=== PATIENT | male | born 1980 | race Caucasian/White ===

== ENCOUNTER 2017-04-09 14:19 | Emergency (ER) | payer OTHER ==
[2017-04-09 15:57] LABS: Hematocrit 42 % (42-52); Hemoglobin 14.6 g/dl (14.0-18.0); Mean Corpuscular HGB Conc 35 g/dl (31-36); Mean Corpuscular Hemoglobin 31 pg (27-31); Mean Corpuscular Volume 89 fL (80-94); Mean Platelet Volume 8 um3 (7.4-10.4); Red Blood Count 4.74 10^6/ul (4.0-5.4); Red Cell Distribution Width 13 % (10.5-15); White Blood Count 7.2 10^3/ul (3.5-10.8)
[2017-04-09 16:17] LABS: BUN/Creatinine Ratio 13.8 (8-20); Calcium 9.2 mg/dL (8.6-10.3); EGFR Non-African American 98.7 (>60); Potassium 3.8 mmol/L (3.5-5.0); Total Bilirubin 0.7 mg/dL (0.2-1.0)
--- NOTE | 2017-04-09 16:45 | ED ---
GI/ HPI - HPI Summary HPI Summary: c/o back pain in flank /kidney area for a few days, then today pain in two decayed teeth one on top and one on bottom on the left side are painful and gums are swollen - History of Current Complaint Chief Complaint: EDFlankPain Time Seen by Provider: 04/09/17 16:44 Stated Complaint: KIDNEY PAIN Hx Obtained From: Patient Onset/Duration: Started Days Ago, Atraumatic Timing: Constant Severity: Moderate Current Severity: Moderate Pain Intensity: 9 Location of Pain: Flank Pain Characteristics: Aching Associated Signs and Symptoms: Positive: Negative Aggravating Factor(s): Nothing Alleviating Factor(s): Nothing - Allergy/Home Medications Allergies/Adverse Reactions: Allergies Allergy/AdvReac Type Severity Reaction Status Date / Time Penicillins Allergy Rash And Verified 07/27/14 10:36 Itching PMH/Surg Hx/FS Hx/Imm Hx Previously Healthy: No Endocrine/Hematology History: Denies: Hx Diabetes, Hx Thyroid Disease Cardiovascular History: Denies: Hx Hypertension, Hx Pacemaker/ICD Respiratory History: Denies: Hx Asthma, Hx Chronic Obstructive Pulmonary Disease (COPD) GI History: Denies: Hx Ulcer Musculoskeletal History: Denies: Hx Arthritis, Hx Osteoporosis Sensory History: Denies: Hx Hearing Aid Neurological History: Reports: Hx Headaches Psychiatric History: Reports: Hx Depression Denies: Hx Panic Disorder Infectious Disease History: Yes Infectious Disease History: Denies: Hx Hepatitis, Hx Human Immunodeficiency Virus (HIV), History Other Infectious Disease, Traveled Outside the in Last 30 Days - Family History Known Family History: Positive: None - Social History Occupation: Unemployed Lives: With Family Alcohol Use: Daily Alcohol Amount: shots of vodka daily Substance Use Type: Reports: Marijuana Substance Use Comment - Amount & Last Used: occassionally Smoking Status (MU): Heavy Every Day Tobacco Smoker Type: Cigarettes Amount Used/How Often: 1 ppd Length of Time of Smoking/Using Tobacco: 20 years Have You Smoked in the Last Year: Yes Review of Systems Constitutional: Negative Eyes: Negative Positive: Dental Pain Cardiovascular: Negative Respiratory: Negative Gastrointestinal: Negative Genitourinary: Other Positive: flank pain Musculoskeletal: Negative Skin: Negative Neurological: Negative Psychological: Normal All Other Systems Reviewed And Are Negative: Yes Physical Exam Triage Information Reviewed: Yes Vital Signs On Initial Exam: Initial Vitals Temp Pulse Resp BP Pulse Ox 98.4 F 100 17 164/95 97 04/09/17 14:23 04/09/17 14:23 04/09/17 14:23 04/09/17 14:23 04/09/17 14:23 Vital Signs Reviewed: Yes Appearance: Positive: Well-Appearing, Well-Nourished, Pain Distress - mild Skin: Positive: Warm, Skin Color Reflects Adequate Perfusion Head/Face: Positive: Normal Head/Face Inspection Eyes: Positive: Normal, Conjunctiva Clear ENT: Positive: Normal ENT inspection, Hearing grossly normal, Pharynx normal, Dental tenderness. Negative: Nasal congestion, Nasal drainage, Tonsillar swelling, Tonsillar exudate, Trismus, Muffled/hoarse voice Dental: Positive: Gross Decay/Caries @, Abscess @ Neck: Positive: Supple, Nontender Respiratory/Lung Sounds: Positive: Clear to Auscultation, Breath Sounds Present Cardiovascular: Positive: Normal, Pulses are Symmetrical in both Upper and Lower Extremities Abdomen Description: Positive: Nontender, No Organomegaly, Soft. Negative: CVA Tenderness (R), CVA Tenderness (L) Bowel Sounds: Positive: Present Neurological: Positive: Normal, Sensory/Motor Intact, Alert, Oriented to Person Place, Time Psychiatric: Positive: Normal AVPU Assessment: Alert - [place] Coma Scale Best Eye Response: 4 - Spontaneous Best Motor Response: 6 - Obeys Commands Best Verbal Response: 5 - Oriented Diagnostics - Vital Signs Vital Signs Temp Pulse Resp BP Pulse Ox 04/09/17 14:23 98.4 F 100 17 164/95 97 - Laboratory Lab Results: Lab Results 04/09/17 04/09/17 04/09/17 Range/Units 15:45 15:45 15:45 WBC 7.2 (3.5-10.8) 10^3/ul RBC 4.74 (4.0-5.4) 10^6/ul Hgb 14.6 (14.0-18.0) g/dl Hct 42 (42-52) % MCV 89 (80-94) fL MCH 31 (27-31) pg MCHC 35 (31-36) g/dl RDW 13 (10.5-15) % Plt Count 267 (150-450) 10^3/ul MPV 8 (7.4-10.4) um3 Neut % (Auto) 56.7 (38-83) % Lymph % (Auto) 28.1 (25-47) % [place] % (Auto) 12.7 H (1-9) % Eos % (Auto) 1.4 (0-6) % Baso % (Auto) 1.1 (0-2) % Absolute Neuts (auto) 4.1 (1.5-7.7) 10^3/ul Absolute Lymphs (auto) 2.0 (1.0-4.8) 10^3/ul Absolute Monos (auto) 0.9 H (0-0.8) 10^3/ul Absolute Eos (auto) 0.1 (0-0.6) 10^3/ul Absolute Basos (auto) 0.1 (0-0.2) 10^3/ul Absolute Nucleated RBC 0 10^3/ul Nucleated RBC % 0 Sodium 139 (133-145) mmol/L Potassium 3.8 (3.5-5.0) mmol/L Chloride 109 (101-111) mmol/L Carbon Dioxide 25 (22-32) mmol/L Anion Gap 5 (2-11) mmol/L BUN 12 (6-24) mg/dL Creatinine 0.87 (0.67-1.17) mg/dL Est GFR ( Amer) 127.0 (>60) Est GFR (Non-Af Amer) 98.7 (>60) BUN/Creatinine Ratio 13.8 (8-20) Glucose 103 H (70-100) mg/dL Lactic Acid 0.7 (0.5-2.0) mmol/L Calcium 9.2 (8.6-10.3) mg/dL Total Bilirubin 0.70 (0.2-1.0) mg/dL AST 15 (13-39) U/L ALT 15 (7-52) U/L Alkaline Phosphatase 61 (34-104) U/L Total Protein 7.0 (6.4-8.9) g/dL Albumin 4.0 (3.2-5.2) g/dL Globulin 3.0 (2-4) g/dL Albumin/Globulin Ratio 1.3 (1-3) Result Diagrams: 04/09/17 15:45 04/09/17 15:45 Lab Statement: Any lab studies that have been ordered have been reviewed, and results considered in the medical decision making process. GIGU Course/Dx - Course Assessment/Plan: dental caries with abscess, flank pain, nicotine dependent hypertension - Diagnoses Provider Diagnoses: Dental caries, Flank pain, Nicotine dependence, Hypertension Discharge - Discharge Plan Condition: Stable Disposition: HOME Prescriptions: Clindamycin Cap(NF) [Clindamycin Cap 300 mg Cap(NF)] 300 mg PO Q6H #40 cap Hydrocodone-Acetaminophen [Hydrocodone/Acetaminophen 5-325 mg] 1 tab PO Q6H PRN #10 tab MDD 4 PRN Reason: pain Naproxen [Naproxen 500 mg] 500 mg PO BID #20 tab Patient Education Materials: Dental Abscess (ED), Hypertension (ED), Flank Pain (ED), Toothache (ED) Referrals: [facility] [place] [facility]FERRAL [Outside] - 1 Week Additional Instructions: Follow with dentist next week as planned
[2017-04-09 17:25] LABS: Urine Bilirubin Negative (Negative); Urine Glucose Negative (Negative); Urine Nitrite Negative (Negative)
[2017-04-09 17:51] VITALS: BP 156/93
== END 2017-04-09 17:50 | disposition home or self-care (01) ==
LOC: ED 14:19
DX: M54.9 Dorsalgia, unspecified (principal); K02.9 Dental caries, unspecified; I10 Essential (primary) hypertension; F32.9 Major depressive disorder, single episode, unspecified; Z88.0 Allergy status to penicillin; F12.90 Cannabis use, unspecified, uncomplicated; F17.210 Nicotine dependence, cigarettes, uncomplicated
CPT/HCPCS: 36415; 80053; 81003; 83605; 85025; 99282

== ENCOUNTER → 2018-06-25 10:41 | Emergency (ER) | payer OTHER ==
[2018-06-25 13:49] LABS: ABS Basophils 0 10^3/ul (0-0.2); ABS Eosinophils 0.2 10^3/ul (0-0.6); ABS Lymphocytes 2.6 10^3/ul (1.0-4.8); ABS Monocytes 0.5 10^3/ul (0-0.8); ABS Neutrophils 3.1 10^3/ul (1.5-7.7); ABS Nucleated RBC 0 10^3/ul; Eosinophil % 2.5 %; Hematocrit 40 % (42-52); Hemoglobin 13.6 g/dl (14.0-18.0); Lymphocyte % 40.4 %; Mean Corpuscular HGB Conc 34 g/dl (31-36); Mean Corpuscular Hemoglobin 30 pg (27-31); Mean Corpuscular Volume 88 fL (80-94); Mean Platelet Volume 8.3 fL (7.4-10.4); Nucleated Red Blood Cells % 0.1; Platelet Count 194 10^3/ul (150-450); Red Blood Count 4.53 10^6/ul (4.00-5.40); Red Cell Distribution Width 13 % (10.5-15); White Blood Count 6.5 10^3/ul (3.5-10.8)
[2018-06-25 14:18] LABS: Albumin 3.9 g/dL (3.2-5.2); Albumin/Globulin Ratio 1.7 (1-3); BUN/Creatinine Ratio 9.9 (8-20); C Reactive Protein 1.13 mg/L (<8.01); EGFR Non-African American 93.2 (>60); Globulin 2.3 g/dL (2-4); Potassium 4.1 mmol/L (3.5-5.0); Total Bilirubin 0.6 mg/dL (0.2-1.0); Total Protein 6.2 g/dL (6.4-8.9)
[2018-06-25 15:09] VITALS: BP 0/0
--- NOTE | 2018-06-26 06:49 | ED ---
HPI Chest Pain - HPI Summary HPI Summary: Patient is a 38-year-old male with a 2 day history of chest pain with cough. He denies any known sick contacts. He states he has been in [place] recently and may have picked up something there. He denies any fevers, sweats, chills. Patient endorses heavy smoking history. Denies any abdominal pain. Endorses sore throat over the past few days as well and frequent panic attacks which he states he is unable to breathe following the panic attacks. He denies any sweats or chills. Patient states he is here to get "checked out." - History of Current Complaint Chief Complaint: EDGeneral Time Seen by Provider: 06/25/18 13:06 Hx Obtained From: Patient Onset/Duration: Started Hours Ago Timing: Constant Initial Severity: Moderate Current Severity: Moderate Pain Intensity: 5 Pain Scale Used: 0-10 Numeric Chest Pain Location: Diffuse Chest Pain Radiates: No Character: Cough, Non-Productive Aggravating Factor(s): Nothing Alleviating Factor(s): Nothing Associated Signs and Symptoms: Positive: Negative - Risk Factors Pulmonary Embolism Risk Factors: Negative TAD Risk Factors: Negative - Allergy/Home Medications Allergies/Adverse Reactions: Allergies Allergy/AdvReac Type Severity Reaction Status Date / Time Penicillins Allergy Rash And Verified 06/25/18 13:26 Itching Home Medications: Home Medications Buprenorphine HCl/Naloxone HCl [Suboxone 12 mg-3 mg Sl Film] 1 film PO BID 06/25 [History Confirmed 06/25/18] PMH/Surg Hx/FS Hx/Imm Hx Previously Healthy: Yes Endocrine/Hematology History: Denies: Hx Diabetes, Hx Thyroid Disease Cardiovascular History: Denies: Hx Hypertension, Hx Pacemaker/ICD Respiratory History: Denies: Hx Asthma, Hx Chronic Obstructive Pulmonary Disease (COPD) GI History: Denies: Hx Ulcer Musculoskeletal History: Denies: Hx Arthritis, Hx Osteoporosis Sensory History: Denies: Hx Hearing Aid Neurological History: Reports: Hx Headaches Psychiatric History: Reports: Hx Depression Denies: Hx Panic Disorder - Immunization History Hx Pertussis Vaccination: No Immunizations Up to Date: Yes Infectious Disease History: No Infectious Disease History: Denies: Hx Hepatitis, Hx Human Immunodeficiency Virus (HIV), History Other Infectious Disease, Traveled Outside the [place] in Last 30 Days - Family History Known Family History: Positive: None - Social History Occupation: Unemployed Lives: With Family Alcohol Use: None Alcohol Amount: shots of vodka daily Hx Substance Use: Yes Substance Use Type: Reports: Marijuana Substance Use Comment - Amount & Last Used: occassionally Hx Tobacco Use: Yes Smoking Status (MU): Heavy Every Day Tobacco Smoker Type: Cigarettes Amount Used/How Often: 1 ppd Length of Time of Smoking/Using Tobacco: 20 years Have You Smoked in the Last Year: Yes Review of Systems Constitutional: Negative Negative: Fever, Chills, Fatigue, Skin Diaphoresis Negative: Dental Pain, Sore Throat Positive: Chest Pain. Negative: Palpitations Positive: Cough. Negative: Shortness Of Breath Negative: Abdominal Pain, Vomiting, Diarrhea, Nausea Genitourinary: Negative Positive: no symptoms reported, see HPI Negative: Arthralgia, Myalgia Skin: Negative Neurological: Negative All Other Systems Reviewed And Are Negative: Yes Physical Exam Triage Information Reviewed: Yes Vital Signs On Initial Exam: Initial Vitals Temp Pulse Resp BP Pulse Ox 98.5 F 94 20 139/87 98 06/25/18 10:53 06/25/18 10:53 06/25/18 10:53 06/25/18 10:53 06/25/18 10:53 Vital Signs Reviewed: Yes Appearance: Positive: Well-Appearing, Well-Nourished Skin: Positive: Warm, Skin Color Reflects Adequate Perfusion Head/Face: Positive: Normal Head/Face Inspection Eyes: Positive: EOMI, TORIE, Conjunctiva Clear Neck: Positive: Supple, No Lymphadenopathy Respiratory/Lung Sounds: Positive: Clear to Auscultation, Breath Sounds Present Cardiovascular: Positive: RRR, Pulses are Symmetrical in both Upper and Lower Extremities Musculoskeletal: Positive: Normal, Strength/ROM Intact Neurological: Positive: Speech Normal Psychiatric: Positive: Affect/Mood Appropriate AVPU Assessment: Alert Diagnostics - Vital Signs Vital Signs Temp Pulse Resp BP Pulse Ox 06/25/18 15:07 0 F 0 16 0/0 0 06/25/18 14:16 66 18 128/80 96 06/25/18 14:00 76 17 94 06/25/18 13:46 69 29 123/72 93 06/25/18 13:16 73 17 137/89 96 06/25/18 13:15 11 06/25/18 10:53 98.5 F 94 20 139/87 98 - Laboratory Lab Results: Lab Results 06/25/18 06/25/18 Range/Units 13:38 13:38 WBC 6.5 (3.5-10.8) 10^3/ul RBC 4.53 (4.00-5.40) 10^6/ul Hgb 13.6 L (14.0-18.0) g/dl Hct 40 L (42-52) % MCV 88 (80-94) fL MCH 30 (27-31) pg MCHC 34 (31-36) g/dl RDW 13 (10.5-15) % Plt Count 194 (150-450) 10^3/ul MPV 8.3 (7.4-10.4) fL Neut % (Auto) 48.2 % Lymph % (Auto) 40.4 % [place] % (Auto) 8.2 % Eos % (Auto) 2.5 % Baso % (Auto) 0.7 % Absolute Neuts (auto) 3.1 (1.5-7.7) 10^3/ul Absolute Lymphs (auto) 2.6 (1.0-4.8) 10^3/ul Absolute Monos (auto) 0.5 (0-0.8) 10^3/ul Absolute Eos (auto) 0.2 (0-0.6) 10^3/ul Absolute Basos (auto) 0 (0-0.2) 10^3/ul Absolute Nucleated RBC 0 10^3/ul Nucleated RBC % 0.1 Sodium 139 (135-145) mmol/L Potassium 4.1 (3.5-5.0) mmol/L Chloride 107 (101-111) mmol/L Carbon Dioxide 28 (22-32) mmol/L Anion Gap 4 (2-11) mmol/L BUN 9 (6-24) mg/dL Creatinine 0.91 (0.67-1.17) mg/dL Est GFR ( Amer) 112.8 (>60) Est GFR (Non-Af Amer) 93.2 (>60) BUN/Creatinine Ratio 9.9 (8-20) Glucose 102 H (70-100) mg/dL Calcium 9.0 (8.6-10.3) mg/dL Total Bilirubin 0.60 (0.2-1.0) mg/dL AST 15 (13-39) U/L ALT 13 (7-52) U/L Alkaline Phosphatase 63 (34-104) U/L Troponin I 0.00 (<0.04) ng/mL C-Reactive Protein 1.13 (<8.01) mg/L Total Protein 6.2 L (6.4-8.9) g/dL Albumin 3.9 (3.2-5.2) g/dL Globulin 2.3 (2-4) g/dL Albumin/Globulin Ratio 1.7 (1-3) Result Diagrams: 06/25/18 13:38 06/25/18 13:38 Lab Statement: Any lab studies that have been ordered have been reviewed, and results considered in the medical decision making process. Chest Pain Course/Dx - Course Course Of Treatment: Patient is evaluated for chest pain with cough. Chest x- ray obtained which was no acute cardiopulmonary disease. Troponin 0.00. Although labs WNL. On physical examination, patient appears well, nontoxic appearing, lungs CTA, RRR, no abdominal pain on T palpation, no CVA tenderness bilaterally. Patient is requesting an albuterol inhaler and I have also given him steroids for his chest discomfort Likely secondary to bronchitis. He is requesting a note for court and work for being here in the ED today. I have faxed information to court he was seen in ED. - Chest Pain Differential Diagnosis/HQI/PQRI: Chest Wall - Diagnoses Provider Diagnoses: Atypical chest pain, Bronchitis Discharge - Sign-Out/Discharge Documenting (check all that apply): Patient Departure - Discharge Plan Condition: Stable Disposition: HOME Prescriptions: Albuterol HFA INHALER* [Ventolin HFA Inhaler*] 1 puff INH Q4H PRN #1 mdi PRN Reason: Shortness Of Breath predniSONE TAB* [Deltasone TAB*] 50 mg PO DAILY #5 tab Forms: *Gen. Provider Communication, *Work Release Referrals: Non Staff,Doctor [Primary Care Provider] - Additional Instructions: Prednisone once daily 5 days Albuterol up to every 4 hours as needed for difficulty with breathing - Billing Disposition and Condition Condition: STABLE Disposition: Home
== END | disposition home or self-care (01) ==
LOC: ED 10:41
DX: R07.89 Other chest pain (principal); J40 Bronchitis, not specified as acute or chronic; F17.210 Nicotine dependence, cigarettes, uncomplicated
CPT/HCPCS: 36415; 71046; 80053; 84484; 85025; 86140; 99282

== ENCOUNTER 2018-07-19 12:44 | Emergency (ER) | payer OTHER ==
--- NOTE | 2018-07-19 14:23 | ED ---
Throat Pain/Nasal Congestion - HPI Summary HPI Summary: Pt. is a 38 y.o male who presents to the ER for dental pain x several days. Pt. notes he has an apt. with a dentist but states pain was too bad to wait till tomorrow. Denies associated sxs of fever, chills, N/V. No past medical hx. Touching affected teeth make sxs worse. Nothing makes sxs better. Pt. currently on suboxone. Pt. also notes he is getting over bronchitis and has been coughing and wheezing. He states these sxs are improving and wheezing clears with his inhaler. - History of Current Complaint Chief Complaint: EDDentalPain Time Seen by Provider: 07/19/18 14:22 Hx Obtained From: Patient - Allergies/Home Medications Allergies/Adverse Reactions: Allergies Allergy/AdvReac Type Severity Reaction Status Date / Time Penicillins Allergy Rash And Verified 07/19/18 12:50 Itching PMH/Surg Hx/FS Hx/Imm Hx Previously Healthy: Yes Endocrine/Hematology History: Denies: Hx Diabetes, Hx Thyroid Disease Cardiovascular History: Denies: Hx Hypertension, Hx Pacemaker/ICD Respiratory History: Denies: Hx Asthma, Hx Chronic Obstructive Pulmonary Disease (COPD) GI History: Denies: Hx Ulcer Musculoskeletal History: Denies: Hx Arthritis, Hx Osteoporosis Sensory History: Denies: Hx Hearing Aid Neurological History: Reports: Hx Headaches Psychiatric History: Reports: Hx Depression Denies: Hx Panic Disorder Infectious Disease History: No Infectious Disease History: Denies: Hx Hepatitis, Hx Human Immunodeficiency Virus (HIV), History Other Infectious Disease, Traveled Outside the [place] in Last 30 Days - Family History Known Family History: Positive: None - Social History Occupation: Unemployed Lives: With Family Alcohol Use: None Alcohol Amount: shots of vodka daily Hx Substance Use: Yes Substance Use Type: Reports: Marijuana Substance Use Comment - Amount & Last Used: occassionally Hx Tobacco Use: Yes Smoking Status (MU): Heavy Every Day Tobacco Smoker Type: Cigarettes Amount Used/How Often: 1 ppd Length of Time of Smoking/Using Tobacco: 20 years Have You Smoked in the Last Year: Yes Review of Systems Constitutional: Negative Eyes: Negative Positive: Dental Pain Cardiovascular: Negative Positive: Cough Gastrointestinal: Negative Neurological: Negative All Other Systems Reviewed And Are Negative: Yes Physical Exam Triage Information Reviewed: Yes Vital Signs On Initial Exam: Initial Vitals Temp Pulse Resp BP Pulse Ox 97.2 F 89 16 134/93 96 07/19/18 12:47 07/19/18 12:47 07/19/18 12:47 07/19/18 12:47 07/19/18 12:47 Vital Signs Reviewed: Yes Appearance: Positive: Well-Appearing - Pt. sitting on bed in NAD. Anxious, very talkative. S.O present. Skin: Positive: Warm, Dry Head/Face: Positive: Normal Head/Face Inspection Eyes: Positive: Normal, EOMI, Conjunctiva Clear ENT: Positive: Pharynx normal, TMs normal Dental: Positive: Other - Extremely poor dentition throughout with numerous caries and dental decay. Gingiva is diffusely erythematous and edematous. No drainable abscess noted. Teeth are tender throughout. No trismus. No submandibular edema. No necrosis. Neck: Positive: Supple, Nontender, No Lymphadenopathy Respiratory/Lung Sounds: Positive: Other - MIld diffuse expiratory wheeze throughout. Cardiovascular: Positive: RRR Musculoskeletal: Positive: Normal, Strength/ROM Intact Neurological: Positive: Normal, CN Intact II-III Psychiatric: Positive: Anxious Diagnostics - Vital Signs Vital Signs Temp Pulse Resp BP Pulse Ox 07/19/18 12:47 97.2 F 89 16 134/93 96 - Laboratory Lab Statement: Any lab studies that have been ordered have been reviewed, and results considered in the medical decision making process. EENT Course/Dx - Course Course Of Treatment: Pt. presenting for dental pain. He is afebrile and nontoxic. He has an apt. with a dentist tomorrow. He will likely need numerous extractions. Pt. was given an injection of toradol for pain. Will start on penvk and naproxen. Will return if sxs change or worsen. - Differential Diagnoses Differential Diagnoses: Cellulitis, Dental Abscess, Dental Caries, Venancio's Angina - Diagnoses Provider Diagnoses: Dental decay Discharge - Sign-Out/Discharge Documenting (check all that apply): Patient Departure - Discharge Plan Condition: Good Disposition: HOME Prescriptions: Clindamycin Cap(NF) [Clindamycin Cap 300 mg Cap(NF)] 300 mg PO QID #40 cap Naproxen [Naproxen 500 mg tab] 500 mg PO BID #20 tablet Patient Education Materials: Dental Abscess (ED) Referrals: Jada Lam MD [Primary Care Provider] - Additional Instructions: Follow up with your dentist tomorrow as directed Take medication as directed Return to ER if symptoms change or worsen - Billing Disposition and Condition Condition: GOOD Disposition: Home
[2018-07-19] MEDS ORDERED: Clindamycin CAP* 150 MG PO ONE (15:04)
[2018-07-19] MEDS ORDERED: Ketorolac INJ* 60 MG/2 ML VIAL IM ONE (15:04)
[2018-07-19 15:21] VITALS: BP 122/81
== END 2018-07-19 15:20 | disposition home or self-care (01) ==
LOC: ED 12:44
DX: K04.7 Periapical abscess without sinus (principal); Z88.0 Allergy status to penicillin; F17.210 Nicotine dependence, cigarettes, uncomplicated
CPT/HCPCS: 96372; 99282; A9270-GY; J1885